=== PATIENT | female | born 1955 | race Two or more races ===

== ENCOUNTER 2017-11-22 15:20 | Emergency (ER) | payer OTHER ==
[2017-11-22] MEDS ORDERED: LIDOCAINE 1% INJ-PF (10 MG/ML) 30 ML SDV INJ ONE (16:31)
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
[2017-11-22] MEDS ORDERED: CEPHALEXIN 500 MG CAPSULE PO ONE (18:28)
[2017-11-22 18:35] VITALS: BP 160/92
== END 2017-11-22 19:06 | disposition home or self-care (01) ==
LOC: ER 15:20
DX: S81.811A Laceration without foreign body, right lower leg, initial encounter (principal); W01.198A Fall on same level from slipping, tripping and stumbling with subsequent striking against other object, initial encounter; Y93.89 Activity, other specified; Y92.009 Unspecified place in unspecified non-institutional (private) residence as the place of occurrence of the external cause; I10 Essential (primary) hypertension; Z87.891 Personal history of nicotine dependence; Z85.3 Personal history of malignant neoplasm of breast
CPT/HCPCS: 99283; 73590; 12002; J3490